=== PATIENT | female | born 1990 | race American Indian/Alaskan Native ===

== ENCOUNTER 2020-02-05 19:14 | Outpatient (CLI) | payer MEDICAID, OTHER ==
[2020-02-05 21:21] LABS: Bacteria,Urine 1+ /HPF (Negative); Bilirubin,Urine NEG (Negative); Blood,Urine SM (Negative); Color,Urine Yellow (Yellow); Mucus,Urine FEW /HPF
== END 2020-02-05 23:04 | disposition home or self-care (01) ==
LOC: TRG 19:14 → LD 20:49 → TRG 23:04
PROVIDERS: ATTEND Obstetrics & Gynecology
DX: O26.892 Other specified pregnancy related conditions, second trimester (principal); Z3A.24 24 weeks gestation of pregnancy
CPT/HCPCS: 81001

== ENCOUNTER 2020-03-24 22:30 | Observation (INO) | payer MEDICAID ==
[2020-03-24] MEDS ORDERED: LACTATED RINGERS 1,000 ML IV ONE (23:21)
--- NOTE | 2020-03-25 02:05 | Ultrasound Report ---
Limited obstetrical ultrasound INDICATION: Twin COMPARISON: None FINDINGS: Twin intrauterine is seen. Both fetuses are in a cephalic position. No evidence o f placenta previa is seen of the placenta does not well evaluated. Amniotic fluid volume appears appr opriate with largest vertical pockets of fluid of 6.0 cm for twin A and 5.6 cm for twin B, within nor mal limits for both. Twin A has a heart rate of 146 bpm and twin B has a heart rate of 150 9H per min sitka. No obvious abnormalities are seen on this limited examination. IMPRESSION: Twin with limited parameters as above, no abnormalities are obvious Signer Name: Juan Godfrey MD Signed: 03/25/2020 2:00 AM Workstation Name: [id number]
[2020-03-25] MEDS ORDERED: LACTATED RINGERS 1,000 ML ONE (04:07)
--- NOTE | 2020-03-25 10:01 | Consultation ---
History of Present Illness Consult date: 03/25/20 Consult reason: other (Murmur) History of present illness: This is a 29-year old woman who is 31wks gestation with twins, admitted with suspected rupture of membranes. A cardiac consultation has been requested for suspected heart murmur. Patient denies prior cardiac history and reports no complications during this . She denies unusual shortness of breath. There is no ECG available for review. Medications and Allergies Allergies Allergy/AdvReac Type Severity Reaction Status Date / Time No Known Allergies Allergy Verified 01/10/16 04:52 Home Medications Medication Instructions Recorded Confirmed Last Taken Type No Known Home Medications [No 05/24/16 06/26/16 Unknown History Reported Home Medications] Physical Examination Vital Signs Pulse Pulse Ox 103 H 99 03/24/20 23:04 03/24/20 23:04 General appearance: no acute distress, obese HEENT: Positive: PERRL Cardiac: Positive: Reg Rate and Rhythm Lungs: Positive: Decreased Breath Sounds Assessment and Plan 31 weeks gestation We will obtain an ECG and echocardiogram for further cardiac assessment.
[2020-03-25 13:36] LABS: Hematocrit 26.5 % (30.3-42.9); Hemoglobin 8.9 gm/dl (10.1-14.3); Mean Corpuscular HGB Conc 34 % (30-34); Mean Corpuscular Volume 90 fl (79-97); Red Blood Count 2.94 M/mm3 (3.65-5.03); Red Cell Distribution Width 14.7 % (13.2-15.2)
[2020-03-25 13:59] LABS: Albumin 3.1 g/dL (3.9-5); BUN/Creatinine Ratio 8; Blood Urea Nitrogen 3 mg/dL (7-17); Calcium 8.9 mg/dL (8.4-10.2); Hemolysis Index 0
[2020-03-25 14:02] LABS: Alanine Aminotransferase < 5 units/L (7-56)
[2020-03-25 14:19] LABS: Basophils % (Manual) 0 % (0.0-1.8); Total Cells Counted 100
[2020-03-25 14:20] LABS: Platelet Estimate Consistent w Auto; RBC Morphology Normal
[2020-03-25 14:31] LABS: Platelet Count 244 K/mm3 (140-440)
[2020-03-25 14:50] VITALS: BP 119/70
== END 2020-03-25 18:26 | disposition home or self-care (01) ==
LOC: TRG 22:30 → APU 22:35 → TRG 03-25 01:17 → LD 03-25 01:17
PROVIDERS: ADMIT Obstetrics & Gynecology; ATTEND Obstetrics & Gynecology
DX: O30.043 Twin pregnancy, dichorionic/diamniotic, third trimester (principal); O26.893 Other specified pregnancy related conditions, third trimester; R01.1 Cardiac murmur, unspecified; Z3A.31 31 weeks gestation of pregnancy
CPT/HCPCS: 36415; 76815; 80053; 85007; 85025; 87086; 93005; 93306; G0378; J7120

== ENCOUNTER 2020-04-12 16:37 | Outpatient (CLI) | payer MEDICAID ==
[2020-04-12 17:30] VITALS: BP 117/65
== END 2020-04-12 19:15 | disposition left against medical advice (07) ==
LOC: TRG 16:37 → APU 16:38 → TRG 19:15
PROVIDERS: ATTEND Obstetrics & Gynecology
DX: O36.8130 Decreased fetal movements, third trimester, not applicable or unspecified (principal); Z3A.33 33 weeks gestation of pregnancy
CPT/HCPCS: 59025

== ENCOUNTER 2020-05-05 08:46 | Inpatient (IN) | payer MEDICAID ==
[2020-05-05] MEDS ORDERED: LACTATED RINGERS 1,000 ML ONE (09:01)
[2020-05-05] MEDS ORDERED: ceFAZolin/Water 2 GM/20 ML 2 GM/20 ML SYRINGE IV NR (10:00)
[2020-05-05 10:15] LABS: Basophils % (Auto) 0.4 % (0.0-1.8); Eosinophils # (Auto) 0.4 K/mm3 (0.0-0.4); Eosinophils % (Auto) 4.7 % (0.0-4.3); Hematocrit 28.6 % (30.3-42.9); Hemoglobin 9.4 gm/dl (10.1-14.3); Lymphocytes % (Auto) 23.4 % (13.4-35.0); Mean Corpuscular HGB Conc 33 % (30-34); Mean Corpuscular Volume 83 fl (79-97); Monocytes # (Auto) 0.8 K/mm3 (0.0-0.8); Monocytes % (Auto) 9.3 % (0.0-7.3); Platelet Count 229 K/mm3 (140-440); Red Blood Count 3.44 M/mm3 (3.65-5.03); Red Cell Distribution Width 18.3 % (13.2-15.2)
--- NOTE | 2020-05-05 10:48 | Anesthesia Day of Surgery ---
Anesthesia Day of Surgery - Day of Surgery Patient Examined: Yes Patient H&P Reviewed: Yes Patient is NPO: Yes Beta Blockers: No Cardiac Clearance: No Pulmonary Clearance: No Julio Cesar's Test: N/A
[2020-05-05] MEDS: LACTATED RINGERS 1,000 ML IV SCH ×2 (10:54→18:51)
--- NOTE | 2020-05-05 10:54 | Anesthesia Consultation ---
Anesthesia Consult and Med Hx Date of service: 05/05/20 - Airway ROM Head & Neck: Adequate Mental/Hyoid Distance: Adequate Mallampati Class: Class III Intubation Access Assessment: Probably Good - Pulmonary Exam CTA: Yes (nasal congestion but lungs are clear) - Cardiac Exam Cardiac Exam: RRR - Pre-Operative Health Status ASA Pre-Surgery Classification: ASA3 Proposed Anesthetic Plan: Spinal - Pulmonary Hx Smoking: No Hx Asthma: No Hx Respiratory Symptoms: Yes (nasal congestion for several weeks denies fever) SOB: No COPD: No Home Oxygen Therapy: No Hx Pneumonia: No Hx Sleep Apnea: No (MARCIA PRE SCREEN HIGH RISK) - Cardiovascular System Hx Hypertension: No Hx Coronary Artery Disease: No Hx Heart Attack/AMI: No Hx Angina: No Hx Percutaneous Transluminal Coronary Angioplasty (PTCA): No Hx Cardia Arrhythmia: No Hx Pacemaker: No Hx Internal Defibrillator: No Hx Valvular Heart Disease: No Hx Heart Murmur: No Hx Peripheral Vascular Disease: No - Central Nervous System Hx Neuromuscular Disorder: No Hx Seizures: No CVA: No Hx Back Pain: Yes Hx Psychiatric Problems: No - Gastrointestinal Hx Ulcer: No Hx Gastroesophageal Reflux Disease: Yes - Endocrine Hx Renal Disease: No Hx End Stage Renal Disease: No Hx Cirrhosis: No Hx Liver Disease: No Hx Insulin Dependent Diabetes: No Hx Non-Insulin Dependent Diabetes: No Hx Thyroid Disease: No Hx Hypothyroidism: No Hx Hyperthyroidism: No - Hematic Hx Anemia: Yes Hx Sickle Cell Disease: No - Other Systems Hx Alcohol Use: Yes (OCCASIONAL) Hx Substance Use: No Hx Cancer: No Hx Obesity: Yes (morbid obesity)
[2020-05-05] MEDS ORDERED: ONDANSETRON 4 MG/2 ML INJ IV PRN ×2 (10:57→13:45)
[2020-05-05] MEDS ORDERED: NALOXONE 0.4 MG/1 ML INJ IV PRN ×2 (10:57→13:43)
[2020-05-05] MEDS ORDERED: FAMOTIDINE 20 MG/2 ML INJ IV ONE (11:00)
[2020-05-05] MEDS ORDERED: METOCLOPRAMIDE 10 MG/2 ML INJ IV ONE (11:00)
[2020-05-05] MEDS ORDERED: BICITRA ORAL LIQD 30ML PO ONE (11:00)
[2020-05-05] MEDS ORDERED: OXYTOCIN 20 UNIT/1000ML DRIP 20 UNITS/1,000 ML BAG IV SCH ×2 (11:00→14:00)
--- NOTE | 2020-05-05 11:34 | History and Physical Report ---
History of Present Illness Date of examination: 05/05/20 Date of admission: 05/05/20 08:46 History of present illness: Pt is a 30 yo at 37 weeks with Di/DI twins. vertex/transverse. [facility] advised delivery between 37-38 weeks. Uncomplicated otherwise other than anemia and occasionally elevated BPs. Pt also desires sterilization. Past History Past Medical History: other (anemia) Past Surgical History: no surgical history - Obstetrical History : 5 Hx # Term Pregnancies: 2 Induced : 2 Medications and Allergies Allergies Allergy/AdvReac Type Severity Reaction Status Date / Time No Known Allergies Allergy Verified 01/10/16 04:52 Home Medications Medication Instructions Recorded Confirmed Last Taken Type No Known Home Medications [No 05/24/16 06/26/16 Unknown History Reported Home Medications] Active Meds: Active Medications Hydromorphone HCl (Dilaudid) 0.5 mg IV Q5M PRN PRN Reason: BREAK Oxytocin/Sodium Chloride (Pitocin/Ns 20 Unit/1000ml Drip) 20 units in 1,000 mls @ 0 mls/hr IV TITR MADHU Lactated Ringer's (Lactated Ringers) 1,000 mls @ 2,250 mls/hr IV PREOP MADHU Stop: 05/06/20 11:27 Last Admin: 05/05/20 10:54 Dose: 2,250 mls/hr Documented by: Cefazolin Sodium (Ancef/Sterile Water 2 Gm/20 Ml) 2 gm in 20 mls @ 80 mls/hr IV PREOP NR; Protocol Stop: 05/05/20 23:59 Naloxone HCl (Naloxone) 0.2 mg IV Q2MIN PRN PRN Reason: Res Rate </= 8 or 02 SAT < 92% Ondansetron HCl (Zofran) 4 mg IV Q8H PRN PRN Reason: Nausea And Vomiting Review of Systems All systems: negative (except HPI) - Vital Signs Vital signs: Vital Signs Pulse BP 83 132/80 05/05/20 09:23 05/05/20 09:23 Temp Pulse Resp BP Pulse Ox 94 H 132/80 100 05/05/20 11:01 05/05/20 09:23 05/05/20 11:01 - Physical Exam Abdomen: Positive: normal appearance, soft. Negative: tenderness Results Result Diagrams: 05/05/20 09:45 Abnormal lab results 05/05/20 Range/Units 09:45 RBC 3.44 L (3.65-5.03) M/mm3 Hgb 9.4 L (10.1-14.3) gm/dl Hct 28.6 L (30.3-42.9) % MCH 27 L (28-32) pg RDW 18.3 H (13.2-15.2) % [place] % (Auto) 9.3 H (0.0-7.3) % Eos % (Auto) 4.7 H (0.0-4.3) % All other labs normal. Assessment and Plan - Patient Problems (1) Twin dichorionic diamniotic placenta Current Visit: Yes Status: Acute Plan to address problem: PT consented for LTCS/BTL. Patient fully consented for the surgery. Risks, benefits, and alternatives were all discussed with the patient including risk of bleeding, infection, and potential for injury. Patient understands and accepts these risks. Patient agrees to proceed with surgery. All questions were answered. Patient also aware of the approximately 01/1000 chance of tubal ligation failure. Patient understands and accepts this. BTL papers signed on 03/05/20 (2) Malpresentation of fetus Current Visit: Yes Status: Acute
[2020-05-05] MEDS ORDERED: WATER FOR IRRIG STERILE 1,500 ML BOTTLE IR ONE (11:40)
[2020-05-05] MEDS ORDERED: ceFAZolin/STERILE WATER 2 GM/20 ML SYRINGE IV ONE (11:40)
[2020-05-05] MEDS ORDERED: SODIUM CHLORIDE 0.9% IRR 1,500 ML BOTTLE IR ONE (11:40)
[2020-05-05] MEDS ORDERED: DEXMEDETOMIDINE 200 MCG/2 ML VIAL IV ONE (12:34)
[2020-05-05] MEDS ORDERED: ONDANSETRON 4 MG/2 ML INJ ONE (12:34)
[2020-05-05] MEDS ORDERED: PHENYLEPHRINE/NS 1,000 MCG/10 ML SYRINGE (OR USE) IV ONE (13:30)
--- NOTE | 2020-05-05 13:42 | Procedure Note ---
OB Delivery Note - Delivery Date of Delivery: 05/05/20 Surgeon: VALENCIA GODWIN Estimated blood loss: other (800 cc) - Section Preop diagnosis: desires sterilization, other malpresentation, other (twins, baby B transverse) Postop diagnosis: other (Same plus large B/L ovarian simple cysts. PT was unaware of these preop.) section procedure: section, primary low transverse, bilateral tubal ligation Disposition: PACU Complications: none Narrative: Indication: 30yo at 37 weeks with dichorionic diamniotic twins with baby B being transverse. Patient also desires sterilization. As result patient here for her repeat low-transverse and bilateral tubal ligation. In addition due to the findings in the OR, patient required multiple bilateral ovarian cystotomies. Findings: Normal uterus, tubes. Normal ovaries were visualized but around them bilaterally, she had large simple ovarian cysts bilaterally. They were multiloculated on both sides and all the cysts were filled with straw-colored fluid. No solid components were noted and no external excrescences were noted. On the right side the cystic masses were around 5 to 10 cm combined and on the left were about 15 cm in size all combined. Clear amniotic fluid for both fetuses. No nuchal cord for baby B but loose nuchal cord x2 were noted for baby A. Baby A was vertex and baby B was transverse back up with vertex on the patient's right. The baby was delivered in vertex presentation as well though. Procedure: Patient taken to the operating room and prepped and draped in the usual fashion. Pfannenstiel skin incision was made and carried down to the underlying fascia. Fascia was incised and the incision was extended bilaterally. Rectus fascia dissected off the rectus muscle both superiorly and inferiorly. Peritoneum identified tented up and entered. Peritoneal incision extended superiorly and inferiorly with good visualization of the bladder. Bladder blade was placed. Uterine incision was made and the incision was extended bilaterally. The baby A was delivered from in the typical vertex fashion. Baby bulb suctioned at the incision site and again after delivery. Cord was delayed clamped and cut and handed off to waiting team. Baby B's amniotic mem brane was then ruptured. The baby was rotated to the vertex presentation and was delivered in the typical vertex fashion. Baby was bulb suctioned at the incision site and again after delivery. The cord was delayed clamped and cut as well and handed off to the waiting team. The placentas were delivered spontaneously. The uterus was exteriorized and cleared of all clots and debris. Uterine incision closed with 0 Vicryl in a running locked fashion followed by a second imbricating layer of 0 Vicryl. Good hemostasis was noted after a few additional stitches were made.. Her urine was clear. Attention was now turned to the multiloculated ovarian cysts on each side. All the cysts were drained using the Bovie and was small cystotomy at each of the cyst sites. All the cysts were expressed and drained of straw- colored fluid. Good hemostasis noted. Attention was turned to the tubal ligation. Both tubes were ligated using 0 chromic x2 on each side. This was done successfully and without difficulty on both sides with good hemostasis noted afterwards, even after the uterus, tubes and ovaries were back in the abdominal cavity. Surgicel placed over the areas of dissection of the tubal ligation. The segments of tubes on each side were sent to pathology. Uterus tubes and ovaries return to the abdominal cavity. Gutters were cleared of all clots and debris and the pelvis was well irrigated. Good hemostasis noted. Interceed placed over the uterine incision and over the lower uterine segment in the midline. Attention was turned to the rectus fascia which was reapproximated with 0 Vicryl in a running fashion. Subcutaneous tissues was irrigated and reapproximated with 2-0 Vicryl in a running fashion. Skin was closed with 4-0 Vicryl in a subcuticular fashion followed by Dermabond. The procedure was concluded at this point and the patient tolerated the procedure well. All instrument and lap counts were correct. - A at 1 minute: 8 at 5 minutes: 9 Infant Gender: Female B at 1 minute: 8 at 5 minutes: 9 Gender: Male
[2020-05-05] MEDS ORDERED: LANOLIN/ZINC/DIMETHICONE (LANSINOH) 7 GM TP PRN (13:43)
[2020-05-05] MEDS ORDERED: WITCH HAZEL/ GLYCERIN PAD TP PRN (13:43)
[2020-05-05] MEDS ORDERED: oxyCODONE /ACETAMINOPHEN 5-325MG TAB PO PRN (13:43)
[2020-05-05] MEDS ORDERED: SIMETHICONE 80 MG CHEW TAB PO PRN (13:45)
[2020-05-05] MEDS: HYDROmorphone 1 MG/1 ML INJ IV PRN ×2 (13:56→14:46)
[2020-05-05] MEDS: KETOROLAC 30 MG/1 ML INJ IV PRN (16:23)
[2020-05-05] MEDS: MORPHINE 4 MG/1 ML INJ IV PRN (21:27)
[2020-05-06] MEDS: MAGNESIUM HYDROXIDE (MOM) ORAL LIQD UDC PO PRN ×2 (01:15→22:07)
[2020-05-06] MEDS: KETOROLAC 30 MG/1 ML INJ IV PRN (01:15)
[2020-05-06] MEDS: MORPHINE 4 MG/1 ML INJ IV PRN (05:07)
[2020-05-06 07:23] LABS: Hematocrit 27.4 % (30.3-42.9); Hemoglobin 8.9 gm/dl (10.1-14.3)
[2020-05-06] MEDS: SENNOSIDES 8.6 MG TAB PO PRN (08:11)
--- NOTE | 2020-05-06 09:48 | Progress Note ---
Assessment and Plan - Patient Problems (1) Status post primary low transverse section Current Visit: Yes Status: Acute Plan to address problem: Continue routine PP orders Keep incision clean and dry, remove drsg on POD#2 Anticipate d/c home in 24-48 hrs (2) Twin delivery by Current Visit: Yes Status: Acute (3) Retention of urine, unspecified Current Visit: Yes Status: Acute Plan to address problem: Izquierdo catheter was removed at 0100 this morning, no void Straight cath, maintaine accurate I & O (4) Grief at loss of child Current Visit: Yes Status: Acute Plan to address problem: Loss older child 1 week ago Monitor for PP depression (5) Anemia Current Visit: Yes Status: Acute Qualifiers: Anemia type: iron deficiency Plan to address problem: Asymptomatic Continue daily iron supplementation Increase iron rich foods into diet Subjective - Subjective Date of service: 05/06/20 Principal diagnosis: S/P primary C/S; POD#1 Interval history: See admission H & P and OB operative note Patient reports: appetite normal, pain well controlled (with medication), ambulating normally, no voiding normally, no flatus, no bowel movement : doing well (twins), bottle feeding Objective - Vital Signs Latest vital signs: Vital Signs Temp Pulse Resp BP BP Pulse Ox 05/06/20 07:52 97.6 F 96 H 20 144/87 98 05/06/20 03:44 98.4 F 82 18 146/78 100 05/06/20 00:00 98 F 77 18 137/81 05/05/20 19:30 98.7 F 73 16 152/73 05/05/20 15:30 98.1 F 68 20 137/81 05/05/20 15:15 81 96 05/05/20 15:10 82 96 05/05/20 15:08 78 117/57 05/05/20 15:05 86 96 05/05/20 14:46 63 18 145/74 100 05/05/20 14:43 96.6 F L 05/05/20 14:33 96.6 F L 53 L 16 142/76 100 05/05/20 14:15 54 L 15 140/83 100 05/05/20 14:00 64 20 136/76 100 05/05/20 13:56 16 05/05/20 13:47 69 14 116/77 98 05/05/20 13:43 74 16 124/77 98 05/05/20 13:36 98.6 F 68 17 110/52 97 05/05/20 11:01 94 H 100 05/05/20 10:56 90 99 05/05/20 10:51 87 99 05/05/20 10:46 82 100 05/05/20 10:41 78 100 05/05/20 10:36 77 99 05/05/20 10:31 78 100 05/05/20 10:26 81 100 05/05/20 10:21 84 100 05/05/20 10:16 92 H 99 05/05/20 10:11 78 99 05/05/20 10:06 88 100 05/05/20 10:01 86 100 05/05/20 09:56 92 H 99 05/05/20 09:51 88 99 05/05/20 09:46 83 100 Intake and Output 05/05/20 05/06/20 05/06/20 23:59 07:59 15:59 Intake Total 300 980 Output Total 800 Balance 300 180 Intake: Oral 320 Intake, Free Water 300 660 Output: Urine 800 Indwelling Catheter 800 Other: Total, Intake Amount 120 Total, Output Amount 800 - Exam Breasts: Present: normal Cardiovascular: Present: Regular rate Lungs: Present: Normal air movement Abdomen: Present: soft, tenderness Uterus: Present: firm, fundal height at umbilicus Extremities: Present: edema (+1 in bilat LE) Deep Tendon Reflex Grade: Normal +2 Incision: Present: dressed (no shadow drainage or bleeding noted) - Labs Labs: Abnormal lab results 05/05/20 05/06/20 Range/Units 09:45 05:46 RBC 3.44 L (3.65-5.03) M/mm3 Hgb 9.4 L 8.9 L (10.1-14.3) gm/dl Hct 28.6 L 27.4 L (30.3-42.9) % MCH 27 L (28-32) pg RDW 18.3 H (13.2-15.2) % [place] % (Auto) 9.3 H (0.0-7.3) % Eos % (Auto) 4.7 H (0.0-4.3) %
[2020-05-06] MEDS: FERROUS SULFATE 325 MG TAB PO SCH ×2 (11:47→22:07)
[2020-05-06] MEDS: IBUPROFEN 800 MG TAB PO PRN ×2 (11:50→22:06)
--- NOTE | 2020-05-06 12:02 | Post Anesthesia Evaluation ---
- Post Anesthesia Evaluation Patient Participated: Yes Airway Patent: Yes Stable Respiratory Function: Yes Nausea/Vomiting: No Temp > 96.8F: Yes Pain Manageable: Yes Adequeate Hydration: Yes Anesthesia Complications: No Block Receding Appropriately: Yes Patient on Ventilator: No
[2020-05-06] MEDS ORDERED: IBUPROFEN 800 MG TAB PO PRN (13:43)
[2020-05-06] MEDS: oxyCODONE /ACETAMINOPHEN 5-325MG TAB PO PRN ×2 (17:04→17:13)
[2020-05-07] MEDS: oxyCODONE /ACETAMINOPHEN 5-325MG TAB PO PRN ×3 (02:21→18:22)
[2020-05-07] MEDS: FERROUS SULFATE 325 MG TAB PO SCH ×2 (09:25→22:23)
[2020-05-07] MEDS: SENNOSIDES 8.6 MG TAB PO PRN (10:13)
[2020-05-07] MEDS: IBUPROFEN 800 MG TAB PO PRN ×2 (10:25→22:22)
[2020-05-07] MEDS ORDERED: diphenhydrAMINE 25 MG CAP PO PRN (12:35)
--- NOTE | 2020-05-07 16:55 | Progress Note ---
Assessment and Plan - Patient Problems (1) Status post primary low transverse section Current Visit: Yes Status: Acute Plan to address problem: Continue routine PP orders Keep incision clean and dry Anticipate d/c home tomorrow (2) Twin delivery by Current Visit: Yes Status: Acute (3) Grief at loss of child Current Visit: Yes Status: Acute Plan to address problem: Loss older child 1 week ago Monitor for PP depression (4) Anemia Current Visit: Yes Status: Acute Qualifiers: Anemia type: iron deficiency Plan to address problem: Asymptomatic Continue daily iron supplementation Increase iron rich foods into diet Subjective - Subjective Date of service: 05/07/20 Principal diagnosis: S/P primary C/S; POD#2 Interval history: See admission H & P and OB operative note Patient reports: appetite normal, voiding normally, pain well controlled, flatus, ambulating normally : doing well, bottle feeding Objective - Vital Signs Latest vital signs: Vital Signs Temp Pulse Resp BP BP Pulse Ox 05/07/20 08:50 98.5 F 73 18 133/75 94 05/07/20 02:21 18 05/07/20 01:44 98.4 F 81 20 140/86 98 05/06/20 22:06 18 Intake and Output 05/07/20 05/07/20 05/07/20 07:59 15:59 23:59 Intake Total 480 Balance 480 Intake: Intake, Free Water 480 Other: # Voids Void 2 - Exam Breasts: Present: normal, other (inverted nipples) Cardiovascular: Present: Regular rate Lungs: Present: Normal air movement Abdomen: Present: soft, tenderness Uterus: Present: firm, fundal height below umbilicus (U-1) Extremities: Present: edema (BLE) Incision: Present: dry, intact (glue intact, no drainage or bleeding noted)
--- NOTE | 2020-05-07 16:59 | Discharge Summary ---
Providers - Providers Date of Admission: 05/05/20 08:46 Date of discharge: 05/08/20 (1200) Attending physician: VALENCIA GODWIN Primary care physician: VALENCIA GODWIN Hospitalization Reason for admission: section (twin delivery) Delivery: Procedure: primary low transverse Episiotomy: none Laceration: none Incision: dry, intact (healing well) Other procedures: tubal ligation complications: none Discharge diagnosis: IUP at term delivered (twins) baby: twins (girl and boy) Hospital course: See admission H & P, OB operaive report and PP progress notes Condition at discharge: Stable Disposition: - TO HOME OR SELFCARE - Discharge Diagnoses (1) Status post primary low transverse section Status: Acute (2) Twin delivery by Status: Acute (3) Grief at loss of child Status: Acute (4) Anemia Status: Acute Qualifiers: Anemia type: iron deficiency Plan - Discharge Medications Prescriptions: Ferrous Sulfate [Feosol 325 MG tab] 325 mg PO BID 30 Days #60 tablet Ibuprofen [Motrin 800 MG tab] 800 mg PO Q6H PRN #30 tablet PRN Reason: Pain, Mild (1-3) oxyCODONE /ACETAMINOPHEN [Percocet 5/325 mg] 1 tab PO Q4H PRN #30 tablet PRN Reason: Pain, Moderate (4-6) - Provider Discharge Summary Activity: routine, no sex for 6 weeks, no heavy lifting 4 weeks, no strenuous exercise Diet: other (Iron rich diet) Instructions: routine Additional instructions: [] Smoking cessation referral if applicable(refer to patient education folder for contact #) [] Refer to [facility] Booklet Call your doctor immediately for: * Fever > 100.5 * Heavy vaginal bleeding ( >1 pad per hour) * Severe persistent headache * Shortness of breath * Reddened, hot, painful area to leg or breast * Drainage or odor from incision. * Keep incision clean and dry at all times and follow doctor's instructions regarding bathing/showering - Follow up plan Follow up: VALENCIA GODWIN MD [Primary Care Provider] - 14 Days
[2020-05-08] MEDS: oxyCODONE /ACETAMINOPHEN 5-325MG TAB PO PRN ×2 (02:01→08:33)
[2020-05-08] MEDS: FERROUS SULFATE 325 MG TAB PO SCH (08:34)
[2020-05-08 09:10] VITALS: BP 149/72
== END 2020-05-08 12:30 | disposition home or self-care (01) | DRG 765 ==
LOC: APU 08:46 → OB 15:15
PROVIDERS: ADMIT Obstetrics & Gynecology; ATTEND Obstetrics & Gynecology
PROC: 10D00Z1 Extraction of Products of Conception, Low, Open Approach (ICD-10-PCS; principal; 2020-05-05)
PROC: 0UB70ZZ Excision of Bilateral Fallopian Tubes, Open Approach (ICD-10-PCS; 2020-05-05)
PROC: 0U920ZZ Drainage of Bilateral Ovaries, Open Approach (ICD-10-PCS; 2020-05-05)
DX: O32.9XX2 Maternal care for malpresentation of fetus, unspecified, fetus 2 (principal); D62 Acute posthemorrhagic anemia; O99.89 Other specified diseases and conditions complicating pregnancy, childbirth and the puerperium; O30.043 Twin pregnancy, dichorionic/diamniotic, third trimester; O99.62 Diseases of the digestive system complicating childbirth; D50.9 Iron deficiency anemia, unspecified; O99.02 Anemia complicating childbirth; R33.9 Retention of urine, unspecified; K21.9 Gastro-esophageal reflux disease without esophagitis; O99.214 Obesity complicating childbirth; E66.01 Morbid (severe) obesity due to excess calories; O99.314 Alcohol use complicating childbirth; Z3A.37 37 weeks gestation of pregnancy; Z37.2 Twins, both liveborn; Z30.2 Encounter for sterilization
CPT/HCPCS: 36415; 85014; 85018; 85025; 86850; 86900; 86901; 88112; 88173; 88302; 88307; G0378; C1765; J0690; J1170; J1885; J2270; J2370; J2405; J2590; J2765; J3490; J7120